=== PATIENT | female | born 1930 | race Two or more races ===

== ENCOUNTER 2017-10-06 18:46 | Inpatient (IN) | payer MEDICARE, OTHER ==
[~2017-10-06] VITALS: Ht 152.4 cm; Wt 50.3 kg
--- NOTE | 2017-10-06 19:00 | NUR ---
PT CAME IN WITH CAREGIVER FROM [facility] FOR PSYCH EVAL. NOTED COMBATIVE- HITTING STAFF. NOTED CALM AND COOPERATIVE AT BS. VSS. SEEN BY MD FOR EVAL. SAFETY AND COMFORT MEASURES PROVIDED. WILL MONITOR. CG REMAINS AT BS.
--- NOTE | 2017-10-06 19:30 | NUR ---
MINE DEVELOPMENT ENGINEER PETRONA BS FOR BLOOD DRAW. UNABLE TO PROVIDE URINE SAMPLE AT THIS TIME.
[2017-10-06 19:38] LABS: BASOPHILS # (AUTO) 0.1 /CMM (0.0-0.2); BASOPHILS % (AUTO) 0.9 % (0.0-2.0); EOSINOPHILS # (AUTO) 0.5 /CMM (0.0-0.7); EOSINOPHILS % (AUTO) 6.3 % (0.0-6.0); HEMATOCRIT 33 % (33-45); LYMPHOCYTES # (AUTO) 1.1 /CMM (0.8-4.8); MEAN CORPUSCULAR HEMOGLOBIN 29 PG (26.0-33.0); MEAN CORPUSCULAR HGB CONC 34 g/dl (31.0-36.0); MEAN CORPUSCULAR VOLUME 85 fL (82-100); MONOCYTES # (AUTO) 0.7 /CMM (0.1-1.30); MONOCYTES % (AUTO) 9.5 % (2.0-12.0); NEUTROPHILS # (AUTO) 4.8 /CMM (1.8-8.9); NEUTROPHILS % (AUTO) 68.3 % (43.0-81.0); PLATELET COUNT (AUTO) 145 /CMM (150-450); RDW COEFFICIENT OF VARIATION 13.6 (11.5-15.0); RED BLOOD CELL COUNT(AUTO) 3.86 MIL/uL (4.0-5.2); WHITE BLOOD COUNT (AUTO) 7.2 K/uL (4.3-11.0)
[2017-10-06 19:48] LABS: CARBON DIOXIDE 32 mmol/L (21-32); CHLORIDE 105 mmol/L (98-107); CREATININE 0.7 mg/dL (0.6-1.3); GLUCOSE 96 mg/dL (74-106); POTASSIUM 3.7 mmol/L (3.5-5.1); SODIUM SERUM 143 mmol/L (136-145); UREA NITROGEN, BLOOD 18 mg/dL (7-18)
[2017-10-06 19:54] LABS: ACETAMINOPHEN 0 ug/ml (10-30); ALANINE AMINOTRANSFERASE 19 U/L (12-78); ALBUMIN 3.6 g/dL (3.4-5.0); ALCOHOL, BLOOD < 3 mg/dL (0-0); ALKALINE PHOSPHATASE 45 U/L (46-116); ASPARTATE AMINOTRANSFERASE 18 U/L (15-37); BILIRUBIN,DIRECT 0.1 mg/dL (0.0-0.2); BILIRUBIN,TOTAL 0.4 mg/dL (0.2-1.0); SALICYLATE 0.9 mg/dL (2.8-20.0); TOTAL PROTEIN, SERUM 7.2 g/dL (6.4-8.2)
--- NOTE | 2017-10-06 21:30 | NUR ---
ADMITTED AN 86 Y/O FEMALE FROM [facility]. ON 5150 HOLD DTO AND GD. PER HOLD, PATIENT IS COMBATIVE AND AGGRESSIVE TOWARDS OTHER STAFF AND RESIDENT. PATIENT ADMITTING DX. OF PSYCHOSIS NOS AND MEDICAL DX. DEMENTIA, HYPERTENSION AND HYPERLIPIDEMIA. PATIENT EVALUATED AT [facility] ER AND ARRIVED IN THE UNIT AMBULATING WITH STEADY GAIT AND ASSISTED BY THE EMT. UPON FACE TO FACE EVALUATION, PATIENT APPEARED ALERT AND ORIENTED X 1, CALM, CONFUSED AND DISORGANIZED. PATIENT UNABLE TO SIGN PAPER WORKS. PATIENT IS FULL CODE. ATTEMPTED TO ASK THE PATIENT FOR A BODY SKIN ASSESSMENT BUT PATIENT REFUSED. EXPLAINED THE BENEFITS BUT PATIENT STARTED TO GET AGITATED, AGGRESSIVE AND COMBATIVE WITNESSED BY THE OTHER RN. PATIENT HAS NO SOB, NO ACUTE DISTRESS, BREATHING EVEN AND UNLABORED, NO S/S OF PAIN AND DISCOMFORT. AMBULATORY WITH STEADY GAIT. CONTRABAND AND BELONGINGS INSPECTED AND COLLECTED. NOTIFIED NEUROLOGICAL SURGEON JORDAN TO RECONCILE MEDICATION AND DR. ARGUELLO REGARDING ADMISSION. WILL CONTINUE TO MONITOR [id number] FOR SAFETY
[2017-10-06] MEDS ORDERED: ACETAMINOPHEN 325 MG TABLET PO PRN (22:00)
[2017-10-06] MEDS ORDERED: MAG HYDROX/AL HYDROX/SIMETH 30 ML UDC PO PRN (22:00)
[2017-10-06] MEDS ORDERED: MAGNESIUM HYDROXIDE 30 ML UDC PO PRN (22:00)
[2017-10-06] MEDS ORDERED: LORAZEPAM 0.5 MG TABLET PO PRN (22:00)
[2017-10-07] MEDS ORDERED: ASPI81TA2 PO
[2017-10-07] MEDS ORDERED: AMLO2.5T PO
[2017-10-07] MEDS ORDERED: DONE10TA4 PO
[2017-10-07] MEDS ORDERED: ATOR10TA PO
[2017-10-07] MEDS ORDERED: CALC-10 PO (00:03)
[2017-10-07] MEDS ORDERED: TRAZ-147 PO (00:12)
[2017-10-07] MEDS ORDERED: LOSA100T15 PO (00:12)
[2017-10-07] MEDS ORDERED: DIVA250T4 PO (00:12)
[2017-10-07] MEDS ORDERED: MULT-213 PO (00:12)
[2017-10-07] MEDS ORDERED: MELA3TAB PO (00:12)
[2017-10-07] MEDS ORDERED: ESCI10TA PO (00:12)
[2017-10-07] MEDS ORDERED: OMEG300C3 PO (00:12)
[2017-10-07] MEDS ORDERED: RISP1TAB7 PO (00:12)
[2017-10-07] MEDS ORDERED: RISP0.5T2 PO (00:12)
[2017-10-07 00:51] VITALS: BP 146/82
--- NOTE | 2017-10-07 06:29 | NUR ---
GPS RN NOTE: PATIENT APPEARED TO BE COOPERATIVE. PICTURE TAKEN. BODY CHECK DONE AND SKIN IS INTACT. NOTIFIED CELITO AND DORIAN TRINIDAD OF THE ADMISSION. FAMILY APPRECIATED THE CALL.
[2017-10-07 07:23] LABS: CREATININE 0.6 mg/dL (0.6-1.3)
[2017-10-07 07:31] LABS: CHOLESTEROL 104 mg/dL (<200); HDL CHOLESTEROL 55 mg/dL (40-60); LDL 46 mg/dL (0-99); TRIGLYCERIDES 35 mg/dL (30-150)
[2017-10-07 08:00] VITALS: BP 145/78
--- NOTE | 2017-10-07 09:00 | NUR ---
[id number]: PT REFUSED SKIN ASSESSMENT EVEN AFTER OFFERING 3X
[2017-10-07] MEDS: MULTIVITAMINS,THERAGRAN 1 UDTAB TABLET PO SCH (09:23)
[2017-10-07] MEDS: ASPIRIN 81 MG TAB.CHEW PO SCH (09:23)
[2017-10-07] MEDS: LOSARTAN POTASSIUM 50 MG TABLET PO SCH (09:23)
[2017-10-07] MEDS: CALCIUM CARB 600MG /VIT D 1 EACH TABLET PO SCH (09:23)
[2017-10-07] MEDS: AMLODIPINE BESYLATE 2.5 MG TABLET PO SCH (09:24)
[2017-10-07] MEDS: DIVALPROEX SODIUM 125 MG CAP.SPRINK PO SCH ×2 (12:12→17:24)
[2017-10-07] MEDS: QUETIAPINE FUMARATE 25 MG TABLET PO SCH ×3 (12:12→21:13)
[2017-10-07 16:05] VITALS: BP 111/52
[2017-10-07 20:46] VITALS: BP 129/74
[2017-10-07] MEDS: ATORVASTATIN 10 MG TABLET PO SCH (21:14)
[2017-10-07] MEDS: DONEPEZIL 5 MG TABLET PO SCH (21:14)
[2017-10-08 08:00] VITALS: BP 155/79
[2017-10-08] MEDS: DIVALPROEX SODIUM 125 MG CAP.SPRINK PO SCH ×3 (09:06→18:07)
[2017-10-08] MEDS: LOSARTAN POTASSIUM 50 MG TABLET PO SCH (09:07)
[2017-10-08] MEDS: QUETIAPINE FUMARATE 25 MG TABLET PO SCH ×3 (09:08→21:38)
[2017-10-08] MEDS: CALCIUM CARB 600MG /VIT D 1 EACH TABLET PO SCH (09:08)
[2017-10-08] MEDS: ASPIRIN 81 MG TAB.CHEW PO SCH (09:08)
[2017-10-08] MEDS: MULTIVITAMINS,THERAGRAN 1 UDTAB TABLET PO SCH (09:09)
[2017-10-08] MEDS: AMLODIPINE BESYLATE 2.5 MG TABLET PO SCH (09:09)
--- NOTE | 2017-10-08 11:41 | NUR ---
Initial Discharge Note: Patient resides at [address] [address]. ([phone]). bog worker spoke to patient's daughter Justina Garcia ([phone]) who confirmed that patient resides at [facility] and has been there since May 2017. bog worker spoke to Shelby from [facility] who stated that patient is on a 7 day bed hold that expires 10/13/17. bog worker will help form a safe and proper discharge.
[2017-10-08 16:39] VITALS: BP 127/75
--- NOTE | 2017-10-08 17:30 | NUR ---
DR. ARGUELLO,DR. SARMIENTO IN TO SEE PT.
--- NOTE | 2017-10-08 19:30 | NUR ---
GPS RN NOTE, RECEIVED PATIENT AWAKE AND IN BED NO S/S OR COMPLAINTS OF PAIN AT THIS TIME. PATIENT IS DISPLAYING NO S/S OF APPARENT DISTRESS AT THIS TIME. PATIENT BREATHING IS UNLABORED WITH EQUAL RISE AND FALL OF THE CHEST. PATIENT IS ALERT AND ORIENTED X1 ON ROOM AIR WITH A SPOO2 95 %. PATIENT IS MED COMPLIANT, CONFUSED, ANXIOUS, DISORGANIZED, PACING UP AND DOWN THE HALLWAY AT TIMES, AND NEEDS REORIENTATION. PATIENT DENIES SUICIDE IDEATIONS AND HOMICIDAL IDEATIONS AT THIS TIME. PATIENT ASSISTED WITH TURNING AND REPOSITIONING Q2HR AND PRN FOR COMFORT AND CIRCULATION. PATIENT HAS NO NEEDS AT THIS TIME. PATIENT EDUCATED ON THE USE OF THE CALL BURR. PATIENT BED SIDE RAILS UP X 2 FOR SAFETY. PATIENT BED IS LOCKED AND LOW WILL CONTINUE TO MONITOR AND MAINTAIN SAFETY Q15 MIN WITH THE HELP OF STAFF.
[2017-10-08 20:05] VITALS: BP 136/79
[2017-10-08] MEDS: ATORVASTATIN 10 MG TABLET PO SCH (21:37)
[2017-10-08] MEDS: DONEPEZIL 5 MG TABLET PO SCH (21:37)
[2017-10-08] MEDS: ZOLPIDEM TARTRATE 5 MG TABLET PO PRN (21:38)
--- NOTE | 2017-10-08 21:38 | NUR ---
GPS RN NOTE, PATIENT HAS A COMPLAINT OF NOT BEING ABLE TO SLEEP AND IS AMBIEN AT THIS TIME. PATIENT VITAL SIGNS ARE STABLE. GAVE AMBIEN 5MG PO HS ORDERED. WILL REASSESS FOR INSOMNIA AND I WILL CONTINUE TO MONITOR THIS PATIENT.
[2017-10-09 08:00] VITALS: BP 159/69
[2017-10-09] MEDS: ASPIRIN 81 MG TAB.CHEW PO SCH (09:15)
[2017-10-09] MEDS: CALCIUM CARB 600MG /VIT D 1 EACH TABLET PO SCH (09:16)
[2017-10-09] MEDS: AMLODIPINE BESYLATE 2.5 MG TABLET PO SCH (09:16)
[2017-10-09] MEDS: LOSARTAN POTASSIUM 50 MG TABLET PO SCH (09:16)
[2017-10-09] MEDS: MULTIVITAMINS,THERAGRAN 1 UDTAB TABLET PO SCH (09:18)
[2017-10-09] MEDS: DIVALPROEX SODIUM 125 MG CAP.SPRINK PO SCH ×3 (09:18→17:35)
[2017-10-09] MEDS: QUETIAPINE FUMARATE 25 MG TABLET PO SCH ×3 (09:18→21:24)
--- NOTE | 2017-10-09 09:23 | NUR ---
RN NOTES PULLED SECOND THERAGRAN. WASTED FIRST. PILL DROPPED ON THE FLOOR. NOTIFIED PHARMACY.
[2017-10-09 16:00] VITALS: BP 150/70
[2017-10-09 20:00] VITALS: BP 146/69
--- NOTE | 2017-10-09 20:00 | NUR ---
GPS RN NOTES RECEIVED PTS ON BED AWAKE ALERT AND VERBALLY RESPONSIVE WITH CONFUSION , PTS IS AMBULATORY , NO SOB NO DISTRESS NOTED NO COMPLAIN OF PAIN . ALL NEEDS ATTENDED TO0. ALL DUE MEDS GIVEN ORDERED. , PTS IS CALM COOPERATIVE , V/S STABLE AFEBRILE, WILL CONTINUE TO MONITOR PTS, KEPT PTS CLEAN DRY AND COMFORTABLE.
[2017-10-09] MEDS: DONEPEZIL 5 MG TABLET PO SCH (21:23)
[2017-10-09] MEDS: ATORVASTATIN 10 MG TABLET PO SCH (21:23)
--- NOTE | 2017-10-10 | NUR ---
GPS RN NOTES PTS IS COMFORTABLY SLEEPING IN BED NO SIGNIFICANT CHANGED NOTED.
[2017-10-10 08:00] VITALS: BP 152/57
[2017-10-10] MEDS: ASPIRIN 81 MG TAB.CHEW PO SCH (08:39)
[2017-10-10] MEDS: QUETIAPINE FUMARATE 25 MG TABLET PO SCH ×3 (08:39→22:00)
[2017-10-10] MEDS: CALCIUM CARB 600MG /VIT D 1 EACH TABLET PO SCH (08:39)
[2017-10-10] MEDS: DIVALPROEX SODIUM 125 MG CAP.SPRINK PO SCH ×4 (08:39→22:01)
[2017-10-10] MEDS: MULTIVITAMINS,THERAGRAN 1 UDTAB TABLET PO SCH (08:39)
[2017-10-10] MEDS: LOSARTAN POTASSIUM 50 MG TABLET PO SCH (08:40)
[2017-10-10] MEDS: AMLODIPINE BESYLATE 2.5 MG TABLET PO SCH (08:40)
--- NOTE | 2017-10-10 13:47 | NUR ---
vacuum worker received a voicemail from Maryuri from [address] [address]. ([phone]). who confirmed that transportations has been arranged for Friday and everything is set up form Friday as patient is being discharged. vacuum worker will follow-up.
--- NOTE | 2017-10-10 16:03 | NUR ---
casting house worker spoke to patient's daughter Justina Garcia ([phone]) and informed her that patient will be discharged Friday10/13/17 and will be returning to [place] [address]. ([phone]). Patient's daughter was agreeable with the discharge plan.
[2017-10-10 16:22] VITALS: BP 138/69
[2017-10-10 20:00] VITALS: BP 115/59
[2017-10-10] MEDS: DONEPEZIL 5 MG TABLET PO SCH (22:00)
[2017-10-10] MEDS: ATORVASTATIN 10 MG TABLET PO SCH (22:02)
[2017-10-10] MEDS: ZOLPIDEM TARTRATE 5 MG TABLET PO PRN (22:11)
--- NOTE | 2017-10-10 22:11 | NUR ---
GPS RN NOTES pt c/o inability to sleep, requesting for Ambien . given as ordered . bp : 115/59, hr : 100, 02 sat : 98 % . will cont to monitor.
[2017-10-11 08:00] VITALS: BP 122/53
[2017-10-11] MEDS: MULTIVITAMINS,THERAGRAN 1 UDTAB TABLET PO SCH (08:36)
[2017-10-11] MEDS: AMLODIPINE BESYLATE 2.5 MG TABLET PO SCH (08:36)
[2017-10-11] MEDS: QUETIAPINE FUMARATE 25 MG TABLET PO SCH ×3 (08:37→21:26)
[2017-10-11] MEDS: DIVALPROEX SODIUM 125 MG CAP.SPRINK PO SCH ×4 (08:37→21:26)
[2017-10-11] MEDS: CALCIUM CARB 600MG /VIT D 1 EACH TABLET PO SCH (08:37)
[2017-10-11] MEDS: ASPIRIN 81 MG TAB.CHEW PO SCH (08:37)
[2017-10-11] MEDS: LOSARTAN POTASSIUM 50 MG TABLET PO SCH (08:38)
[2017-10-11 16:00] VITALS: BP 116/63
[2017-10-11 20:00] VITALS: BP 107/60
[2017-10-11] MEDS: ATORVASTATIN 10 MG TABLET PO SCH (21:26)
[2017-10-11] MEDS: DONEPEZIL 5 MG TABLET PO SCH (21:27)
--- NOTE | 2017-10-12 07:30 | NUR ---
RN NOTES PT IN DAYROOM HAVING BREAKFAST. APPEARS CALM AT THIS TIME. NOT IN ANY DISTRESS. SPEAKS TAGALOG. WILL CONTINUE TO MONITOR.
[2017-10-12 08:27] VITALS: BP 124/60
[2017-10-12] MEDS: DIVALPROEX SODIUM 125 MG CAP.SPRINK PO SCH ×4 (09:01→21:42)
[2017-10-12] MEDS: CALCIUM CARB 600MG /VIT D 1 EACH TABLET PO SCH (09:01)
[2017-10-12] MEDS: MULTIVITAMINS,THERAGRAN 1 UDTAB TABLET PO SCH (09:02)
[2017-10-12] MEDS: QUETIAPINE FUMARATE 25 MG TABLET PO SCH ×3 (09:02→21:42)
[2017-10-12] MEDS: ASPIRIN 81 MG TAB.CHEW PO SCH (09:02)
[2017-10-12] MEDS: AMLODIPINE BESYLATE 2.5 MG TABLET PO SCH (09:02)
[2017-10-12] MEDS: LOSARTAN POTASSIUM 50 MG TABLET PO SCH (09:03)
[2017-10-12 15:35] VITALS: BP 116/62
[2017-10-12 16:00] VITALS: BP 116/62
[2017-10-12 20:49] VITALS: BP 112/62
[2017-10-12] MEDS: DONEPEZIL 5 MG TABLET PO SCH (21:42)
[2017-10-12] MEDS: ATORVASTATIN 10 MG TABLET PO SCH (21:42)
[2017-10-13 08:00] VITALS: BP 137/65
[2017-10-13] MEDS: DIVALPROEX SODIUM 125 MG CAP.SPRINK PO SCH ×3 (08:26→16:10)
[2017-10-13] MEDS: QUETIAPINE FUMARATE 25 MG TABLET PO SCH ×2 (08:27→16:10)
[2017-10-13] MEDS: CALCIUM CARB 600MG /VIT D 1 EACH TABLET PO SCH (08:27)
[2017-10-13] MEDS: LOSARTAN POTASSIUM 50 MG TABLET PO SCH (08:27)
[2017-10-13] MEDS: AMLODIPINE BESYLATE 2.5 MG TABLET PO SCH (08:27)
[2017-10-13] MEDS: MULTIVITAMINS,THERAGRAN 1 UDTAB TABLET PO SCH (08:27)
[2017-10-13] MEDS: ASPIRIN 81 MG TAB.CHEW PO SCH (08:27)
[2017-10-13] MEDS ORDERED: MAG HYDROX/AL HYDROX/SIMETH 30 ML UDC PO PRN (15:00)
[2017-10-13] MEDS ORDERED: ACETAMINOPHEN 325 MG TABLET PO PRN (15:00)
[2017-10-13] MEDS ORDERED: ZOLPIDEM TARTRATE 5 MG TABLET PO PRN (15:00)
[2017-10-13] MEDS ORDERED: LORAZEPAM 0.5 MG TABLET PO PRN (15:00)
[2017-10-13] MEDS ORDERED: MAGNESIUM HYDROXIDE 30 ML UDC PO PRN (15:00)
--- NOTE | 2017-10-13 16:08 | NUR ---
Discharge Note: Patient will be discharged to [address] [address]. ([phone]). Via facility transportation. Patient's daughter Justina Garcia ([phone]) has been notified and was agreeable with the discharge plan. Patient's mood and affect are appropriate. Patient denies suicidal and homicidal ideations. Patient will follow-up with her psychiatrist Dr. Reed ([phone]) at the facility. Facilitated info to IDT team who are in agreement with discharge arrangement. The multidisciplinary exitcare form was done, printed, signed, and given to the patient.
[2017-10-13 16:27] VITALS: BP 130/60
--- NOTE | 2017-10-13 18:32 | NUR ---
GPS MOCCASIN SEWER NOTE: PATIENT DISCHARGE TO [facility] [address] [place] [address] VIA FACILITY TRANSPORTATION IN STABLE CONDITION NO S/S DISTRESS NOTED PT CALM AND COOPERATIVE , DENIES SI//HI AT THE TIME OF DISCHARGE. DR ARGUELLO AND DR SARMIENTO DC PT TO SNF. EXIT CARE DONE PRINTED PT REFUSED TO SIGN ALL BELONGINGS RETURNED TO PT, REPORT GIVEN TO DEEJAY RN IN THE FACILITY PT DAUGHTER AWARE .PT SKIN CHECKED PICTURE DONE LAST NIGHT.
== END 2017-10-13 18:35 | DRG 885 ==
LOC: ER 18:47 → GPS 21:16
PROVIDERS: ADMIT Psychiatry & Neurology Psychiatry; ATTEND Nurse Practitioner Acute Care
DX: F29 Unspecified psychosis not due to a substance or known physiological condition (principal); F03.91 Unspecified dementia, unspecified severity, with behavioral disturbance; E78.5 Hyperlipidemia, unspecified; F32.9 Major depressive disorder, single episode, unspecified; I10 Essential (primary) hypertension; Z79.899 Other long term (current) drug therapy; Z73.6 Limitation of activities due to disability
CPT/HCPCS: 36415; 80048-TC; 80061-TC; 80076-TC; 80164-TC; 82565-TC; 85025-TC; 87081-TC; G0480

== ENCOUNTER 2017-12-15 18:51 | Emergency (ER) | payer MEDICARE, OTHER ==
[~2017-12-15] VITALS: Ht 160 cm; Wt 59.0 kg
[~2017-12-15 18:51] MED LIST: AMLO2.5T PO; ASPI-1169 PO; ATOR10TA PO; CALC-10 PO; DIVA250T4 PO; DONE10TA11 PO; ESCI10TA PO; LOSA100T15 PO; MELA3TAB PO; MULT-213 PO; OMEG300C3 PO; RISP0.5T5 PO; RISP1TAB7 PO; TRAZ-147 PO
--- NOTE | 2017-12-15 19:30 | NUR ---
PT BIB CAREGIVER FOR MEDICAL AND PSYCH EVAL. STATES PT IS AGGRESSIVE, AND WAS YELLING AT STAFF. 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 STABLE VITALS. AWAITING MD LOPEZ.
--- NOTE | 2017-12-15 19:36 | NUR ---
DR TERRELL AT BEDSIDE FOR EVAL.
--- NOTE | 2017-12-15 19:53 | NUR ---
ROAD MACHINE OPERATOR AT BEDSIDE FOR BLOOD DRAW.
[2017-12-15 19:58] LABS: BASOPHILS # (AUTO) 0.1 /CMM (0.0-0.2); EOSINOPHILS # (AUTO) 0.2 /CMM (0.0-0.7); EOSINOPHILS % (AUTO) 3.3 % (0.0-6.0); HEMATOCRIT 29 % (33-45); HEMOGLOBIN 9.8 g/dL (11.5-14.8); LYMPHOCYTES # (AUTO) 1.1 /CMM (0.8-4.8); LYMPHOCYTES % (AUTO) 20.1 % (20.0-44.0); MEAN CORPUSCULAR HEMOGLOBIN 29 PG (26.0-33.0); MEAN CORPUSCULAR HGB CONC 34 g/dl (31.0-36.0); MEAN CORPUSCULAR VOLUME 86 fL (82-100); MONOCYTES # (AUTO) 0.4 /CMM (0.1-1.30); MONOCYTES % (AUTO) 7.2 % (2.0-12.0); NEUTROPHILS # (AUTO) 3.9 /CMM (1.8-8.9); NEUTROPHILS % (AUTO) 68.4 % (43.0-81.0); PLATELET COUNT (AUTO) 143 /CMM (150-450); RED BLOOD CELL COUNT(AUTO) 3.36 MIL/uL (4.0-5.2); WHITE BLOOD COUNT (AUTO) 5.7 K/uL (4.3-11.0)
[2017-12-15 20:29] LABS: ALANINE AMINOTRANSFERASE 13 U/L (12-78); ALCOHOL, BLOOD < 3 mg/dL (0-0); ALKALINE PHOSPHATASE 54 U/L (46-116); ASPARTATE AMINOTRANSFERASE 15 U/L (15-37); BILIRUBIN,TOTAL 0.3 mg/dL (0.2-1.0); CALCIUM, SERUM 8.6 mg/dL (8.5-10.1); CARBON DIOXIDE 31 mmol/L (21-32); CHLORIDE 106 mmol/L (98-107); CREATININE 0.7 mg/dL (0.6-1.3); GLUCOSE 105 mg/dL (74-106); SODIUM SERUM 141 mmol/L (136-145); TOTAL PROTEIN, SERUM 6.7 g/dL (6.4-8.2); UREA NITROGEN, BLOOD 21 mg/dL (7-18)
[2017-12-15 20:36] LABS: ACETAMINOPHEN < 2 ug/ml (10-30); SALICYLATE < 2.8 mg/dL (2.8-20.0)
--- NOTE | 2017-12-15 21:13 | NUR ---
WILLIAMS RN AT BEDSIDE FOR PSYCH EVAL.
--- NOTE | 2017-12-15 22:01 | NUR ---
CALL FROM [facility]. PT TO BE TRANSFERED TO [facility] [address]. # FOR REPORT [phone]
--- NOTE | 2017-12-15 22:01 | NUR ---
CALLED [facility] FOR TRANSPORT, ETA [phone] TRIP [phone]
--- NOTE | 2017-12-15 22:22 | NUR ---
REPORT GIVEN TO HELIO EMANUEL. PT AWAITING TRANSFER TO FLOOR.
[2017-12-15 23:19] VITALS: BP 130/65
--- NOTE | 2017-12-15 23:21 | NUR ---
PT TRANSFERED TO [facility]. STABLE VITALS.
== END 2017-12-15 23:29 ==
LOC: ER 18:59
DX: F29 Unspecified psychosis not due to a substance or known physiological condition (principal); D64.9 Anemia, unspecified; E78.5 Hyperlipidemia, unspecified; F03.90 Unspecified dementia, unspecified severity, without behavioral disturbance, psychotic disturbance, mood disturbance, and anxiety; F32.9 Major depressive disorder, single episode, unspecified; F41.9 Anxiety disorder, unspecified; G47.00 Insomnia, unspecified; I10 Essential (primary) hypertension; Z79.82 Long term (current) use of aspirin
CPT/HCPCS: 36415; 80048; 80076; 80329; 84443; 85025; 99285; A4606; G0480 ×2; Z7610